=== PATIENT | female | born 1970 | race Caucasian/White ===

== ENCOUNTER 2018-12-07 07:15 | Day surgery (SDC) | payer OTHER ==
[2018-12-07 07:48] VITALS: BMI 43.3
[2018-12-07 08:21] VITALS: TEMP 97.3
--- NOTE | 2018-12-07 08:29 | OP ---
DATE OF OPERATION: 12/07/2018 SURGEON: Anali Schafer M.D. PREOPERATIVE DIAGNOSIS: Morbid obesity, a body mass index of 43.3. POSTOPERATIVE DIAGNOSIS: Normal gross anatomy prior to bariatric surgery. PROCEDURE PERFORMED: Upper endoscopy/EGD. SPECIMENS: None. ANESTHESIA: MAC. REASON FOR PROCEDURE: This is a 47-year-old female who has undergone the workup and evaluation for a vertical sleeve gastrectomy. To evaluate the gross anatomy prior to surgery, an upper endoscopy (EGD) was scheduled. The risks and benefits of the procedure were explained, these included bleeding, infection, injury to the mouth and oral mucosa, esophagus, GE junction, stomach, bowel perforation, stricture, VT, DVT, PE as some of the complications. She understood and signed informed consent DESCRIPTION OF PROCEDURE: The patient was placed in the left lateral decubitus position. A bite block was placed. A time-out was performed. MAC was given by anesthesia. The endoscope was placed into the patient's mouth and advanced through the esophagus to the GE junction, stomach, up to and beyond the level of the pylorus. Gross anatomy appeared to be normal. No gross ulcerations or gross torsions were noted. The stomach was suctioned and the endoscope fully removed. The patient tolerated the procedure well and was transferred to the recovery room in stable condition. ANALI SCHAFER M.D. [id number] MTDD
--- NOTE | 2018-12-07 08:31 | OP ---
Operative Note - Note: Operative Date: 12/07/18 Pre-Operative Diagnosis: Morbid obesity Operation: EGD Post-Operative Diagnosis: Other (Normal gross anatomy) Surgeon: Chris Schafer Anesthesia: MAC Specimens Removed: None Estimated Blood Loss (mls): 0 Operative Report Dictated: Yes
[2018-12-07 09:07] VITALS: BP 140/76; PULSE 63
== END 2018-12-07 09:06 | disposition home or self-care (01) ==
LOC: JASU-ENDO 07:15 → EDSTATUS 17:40
PROVIDERS: ATTEND Surgery
PROC: 0DJ08ZZ Inspection of Upper Intestinal Tract, Via Natural or Artificial Opening Endoscopic (ICD-10-PCS; principal; 2018-12-07 08:00)
DX: Z01.818 Encounter for other preprocedural examination (principal); E66.01 Morbid (severe) obesity due to excess calories; Z68.41 Body mass index [BMI] 40.0-44.9, adult
CPT/HCPCS: 84703

== ENCOUNTER 2019-02-28 06:01 | Inpatient (IN) | payer OTHER ==
[2019-02-22 14:10] VITALS: BMI 42.0
[2019-02-28] MEDS ORDERED: PROPOFOL 20 ML ONE (07:11)
[2019-02-28] MEDS ORDERED: MIDAZOLAM HCL 2 MG/2 ML SINGLE DOSE VIAL ONE (07:11)
[2019-02-28] MEDS ORDERED: ceFAZolin SODIUM 1 GM VIAL ONE ×2 (07:11)
[2019-02-28] MEDS ORDERED: ONDANSETRON 4 MG/2 ML VIAL ONE (07:11)
[2019-02-28] MEDS ORDERED: DEXAMETHASONE SOD PHOSPHATE 4 MG/1 ML VIAL ONE (07:12)
[2019-02-28] MEDS ORDERED: ROCURONIUM BROMIDE 50 MG/5 ML VIAL ONE ×2 (07:17→09:05)
[2019-02-28] MEDS ORDERED: NEOSTIGMINE METHYLSULFATE 0.5 MG/ML - 10 ML MDV ONE (07:17)
[2019-02-28] MEDS ORDERED: SUCCINYLCHOLINE CHLORIDE 200 MG/10 ML VIAL ONE (07:18)
[2019-02-28] MEDS ORDERED: BUPIVACAINE HCL/PF 2.5 MG/ML - 30 ML VIAL IJ ONE (07:28)
[2019-02-28] MEDS ORDERED: PROMETHAZINE HCL 25 MG/1 ML VIAL IVPUSH PRN (07:45)
--- NOTE | 2019-02-28 07:46 | HP ---
Admitting History and Physical - Admission Chief Complaint: Morbid obesity History Source: Patient Limitations to Obtaining History: No Limitations - Past Medical History ...LMP: 11/09/16 ...LMP Comment: 2016 ...: No - Past Surgical History Past Surgical History: Yes: Cholecystectomy, , Tonsillectomy - Smoking History Smoking history: Never smoked Have you smoked in the past 12 months: No - Alcohol/Substance Use Hx Alcohol Use: No Home Medications - Allergies Allergies/Adverse Reactions: Allergies Allergy/AdvReac Type Severity Reaction Status Date / Time No Known Allergies Allergy Verified 02/22/19 14:01 - Home Medications Home Medications: Ambulatory Orders Biotin 10,000 mcg PO DAILY 02/22/19 Doxycycline Hyclate 100 mg PO BID 02/22/19 Famotidine [Pepcid] 20 mg PO BID #60 tablet 02/28/19 Oxycodone HCl/Acetaminophen [Percocet 5-325 mg Tablet] 1 - 2 tab PO Q6H #28 tab MDD 4 02/28/19 Family Disease History - Family Disease History Family History: Unremarkable Review of Systems - Review of Systems Constitutional: denies: Chills, Fever HENT: reports: No Symptoms Neck: reports: No Symptoms Cardiovascular: reports: No Symptoms Respiratory: reports: No Symptoms Gastrointestinal: reports: No Symptoms. denies: Abdominal Pain Neurological: reports: No Symptoms Pain Intensity: 0 Physical Examination Vital Signs: Vital Signs Temperature 98.4 F 02/28/19 06:57 Pulse Rate 62 02/28/19 06:57 Respiratory Rate 18 02/28/19 06:57 Blood Pressure 128/82 02/28/19 06:57 O2 Sat by Pulse Oximetry (%) Constitutional: Yes: No Distress, Obese Neck: Yes: WNL Cardiovascular: Yes: WNL Respiratory: Yes: Regular Gastrointestinal: Yes: Soft, Abdomen, Obese. No: Tenderness Neurological: Yes: Alert, Oriented Problem List - Problems (1) Morbid obesity due to excess calories Code(s): E66.01 - MORBID (SEVERE) OBESITY DUE TO EXCESS CALORIES (2) BMI 40.0-44.9, adult Code(s): Z68.41 - BODY MASS INDEX (BMI) 40.0-44.9, ADULT Assessment/Plan Laparoscopic possible open vertical sleeve gastrectomy possible liver biopsy, possible upper endoscopy
[2019-02-28] MEDS ORDERED: ePHEDrine SULFATE 50 MG/1 ML AMPULE ONE (08:33)
[2019-02-28] MEDS ORDERED: BUPIVACAINE HCL/PF 0.25% (2.5MG/ML) 10 ML VIAL IJ ONE (09:18)
[2019-02-28] MEDS ORDERED: HYDROmorphone HCL CARPU-JECT 1 MG/1 ML DISP.SYRIN IVPB PRN (09:22)
--- NOTE | 2019-02-28 09:27 | OP ---
Operative Note - Note: Operative Date: 02/28/19 Pre-Operative Diagnosis: Morbid obesity. BMI 42.1 Operation: Diagnostic laparoscopy. Laparoscopic vertical sleeve gastrectomy. Laparoscopic wedge liver biopsy Post-Operative Diagnosis: Same as Pre-op (as well as hepatomegaly) Surgeon: Chris Schafer Sr Technical Sales Consultant: Zion Lozada Anesthesia: General Specimens Removed: Greater curvature of stomach. Liver biopsy Estimated Blood Loss (mls): 30 Drains & Tubes with Location: 36 Fr Bougie Operative Report Dictated: Yes
[2019-02-28] MEDS: ACETAMINOPHEN 1000 MG/100 ML VIAL (NON FORMULARY) IVPB SCH ×4 (09:40→22:05)
[2019-02-28] MEDS: METOCLOPRAMIDE HCL INJECTION 10 MG/2 ML VIAL IVPUSH SCH ×4 (09:46→21:23)
[2019-02-28] MEDS ORDERED: FAMOTIDINE 20 MG PREMIXED IVPB IVPB ONE (10:13)
[2019-02-28 10:37] LABS: ALBUMIN 3.8 g/dl (3.4-5.0); ALK PHOS 76 U/L (45-117); ANION GAP 10 MMOL/L (8-16); BILIRUBIN,TOTAL 0.9 mg/dl (0.2-1); BLOOD UREA NITROGEN 18 mg/dl (7-18); CALCIUM 8.4 mg/dl (8.5-10); CHLORIDE 102 mmol/L (98-107); CO2 26 mmol/L (21-32); CREATININE 0.7 mg/dl (0.55-1.3); GLUCOSE,RANDOM 158 mg/dl (74-106); POTASSIUM 4.5 mmol/L (3.5-5.1); SGOT/AST 49 U/L (15-37); SGPT/ALT 53 U/L (13-61); SODIUM 138 mmol/L (136-145); TOT PROT 6.8 g/dl (6.4-8.2)
[2019-02-28 10:38] LABS: HEMATOCRIT 41.3 % (32.4-45.2); HEMOGLOBIN 13.9 GM/dl (10.7-15.3); MCH 30.2 pg (25.7-33.7); MCHC 33.6 g/dl (32.0-36.0); MEAN CELL VOLUME 89.7 fl (80-96); PLATELET COUNT 281 K/MM3 (134-434); RDW 12.8 % (11.6-15.6); WHITE BLOOD COUNT 5.7 K/mm3 (4.0-10.8)
--- NOTE | 2019-02-28 11:01 | SPEC ---
DATE OF OPERATION: 02/28/2019 SURGEON: Anali Schafer MD CADMIUM LIQUOR MAKER: Zion Lozada MD PREOPERATIVE DIAGNOSES: 1. Morbid obesity. 2. Body mass index 42.1. POSTOPERATIVE DIAGNOSES: 1. Morbid obesity. 2. Body mass index 42.1. 3. Hepatomegaly. PROCEDURES: 1. Diagnostic laparoscopy. 2. Laparoscopic vertical sleeve gastrectomy. 3. Laparoscopic wedge liver biopsy. SPECIMENS: 1. Greater curvature of the stomach. 2. Liver biopsy. ESTIMATED BLOOD LOSS: 30 mL. DRAIN: None. ANESTHESIA: GET. BOUGIE SIZE: 36-[place]. REASON FOR PROCEDURE: This is a 48-year-old female who presented for weight loss options. After describing different options, she decided to proceed with a laparoscopic, possible open, vertical sleeve gastrectomy with possible liver biopsy, possible upper endoscopy. RISKS AND BENEFITS: After describing the different options for weight loss management, the patient decided to proceed with a laparoscopic, possible open vertical sleeve gastrectomy. The patient was seen by the respective subspecialties and cleared for surgery. The risks and benefits of the procedure were explained. These included bleeding, infection, hernia, IA, DVT, PE, injury to surrounding structures including the liver, colon, bowel, spleen, esophagus, vessel injury, nerve injury, weight regain, gastric leak, staple line leak, sleeve leak, obstruction, vitamin deficiency, hair loss and as some of the possible complications. The patient understood and signed informed consent. DESCRIPTION OF PROCEDURE: The patient was placed supine on the operating room table. The patient underwent general endotracheal intubation. The arms were brought out at 90 degrees and secured. A footboard was placed and the legs were secured laterally with padding. The abdomen was prepped and draped in the usual sterile fashion. A timeout was performed. An incision was made in the left upper quadrant and a Veress needle inserted. Pneumoperitoneum was established. Subsequently, the Veress needle was removed and a 5-mm trocar was placed under direct visualization with the laparoscope. The laparoscopic camera was then inserted and inspection of the abdominal cavity was performed. An incision was then made in the supraumbilical area and a 15-mm trocar was placed under direct visualization. A 5-mm trocar was then placed in the right upper quadrant and a 5-mm trocar was placed below the left subcostal margin. A stab wound was made in the subxiphoid area and a Soraya clamp inserted and removed to dilate the tract. A Jesusita liver retractor was inserted. The post was secured at the bedside by the nursing staff. The patient was placed in steep reverse Trendelenburg position and the Jesusita liver retractor was used to secure the liver towards the anterior abdominal wall. The pylorus was identified and 6 cm proximal to it, the lesser sac was entered using the LigaSure device. All lateral attachments to the greater curvature of the stomach, including the short gastric vessels, were ligated using the LigaSure device toward the gastrosplenic and gastrophrenic ligaments. Once this was done in its entirety, it was confirmed that all tubes within the nasal or oropharyngeal cavity, including a temperature probe, was removed by Anesthesia. The bougie was then inserted by Anesthesia. Transection of the stomach was then begun staying adjacent to the bougie but away from the angularis. Transection of the stomach was performed near the portion of the stomach where the lesser sac was entered. Two laparoscopic Endo-SARAI black shun were used at this location. Laparoscopic Endo SARAI purple staple loads were then used for the remainder of the transection until the greater curvature of the stomach was fully transected. This was done staying close to the bougie. Care was taken to stay away from the angle of His cephalad. The staple line was then inspected. Hemostasis was identified. A leak test was then performed. It was clamped distally to the staple line. Irrigation solution was placed in the left upper quadrant and air was insufflated by Anesthesia into the sleeve. No leaks were identified. No obstruction was identified. This was done through the entirety of the staple line. In addition, an upper endoscopy was performed. The endoscope was placed into the patients mouth and the entirety of the esophagus, GE junction, gastric pouch and staple line were inspected. No obstruction or leak was noted. The stomach was suctioned and the endoscope removed fully intact. At this point, the irrigation solution was suctioned and again, hemostasis was noted. A wedge liver biopsy was then performed. The left lobe of the liver was identified and a portion of the edge was grasped. Using electrocautery, a wedge of the liver was excised. This was removed and sent off the field as specimen. Hemostasis at the site of the wedge liver biopsy was attained using electrocautery. The 15-mm supraumbilical trocar was then removed and the greater curvature specimen removed from the site using a sponge stick quinonez. The specimen was inspected and a Veress needle inserted. The specimen insufflated adequately and no leak was identified. The staple line was noted to be intact. A Obinna-Latonia device was then used to close the fascia with a 0 Vicryl suture at the site. Again, hemostasis was noted. The Jesusita liver retractor was then removed under direct visualization. Pneumoperitoneum was desufflated and the fascial sutures were secured. Hemostasis was noted at all incision sites and Marcaine was injected at all incision sites. All incision sites were closed using 4-0 Biosyn. Sterile dressings were applied. The patient tolerated the procedure well and was transferred to the recovery room in stable condition. The patient was transferred to telemetry for further monitoring. ANALI SCHAFER M.D. [id number]
[2019-02-28] MEDS: SODIUM CHLORIDE 1,000 ML IV SCH (12:36)
[2019-02-28] MEDS: FAMOTIDINE 20 MG/50 ML IVPB 20 MG/50 ML MG IVPB SCH ×2 (12:37→21:23)
[2019-02-28] MEDS: ONDANSETRON 4 MG/2 ML VIAL IVPUSH SCH ×3 (12:56→21:22)
[2019-02-28] MEDS: ENOXAPARIN NA (PORCINE) 40 MG/0.4 ML DISP.SYRIN SQ SCH (21:28)
[2019-03-01] MEDS: ONDANSETRON 4 MG/2 ML VIAL IVPUSH SCH ×4 (00:27→12:48)
[2019-03-01] MEDS: ACETAMINOPHEN 1000 MG/100 ML VIAL (NON FORMULARY) IVPB SCH (03:12)
[2019-03-01] MEDS: METOCLOPRAMIDE HCL INJECTION 10 MG/2 ML VIAL IVPUSH SCH ×2 (03:13→09:23)
[2019-03-01 06:59] LABS: HEMATOCRIT 38.2 % (32.4-45.2); HEMOGLOBIN 12.8 GM/dl (10.7-15.3); MCH 30.1 pg (25.7-33.7); MCHC 33.5 g/dl (32.0-36.0); MEAN PLT VOLUME 7.6 fl (7.5-11.1); PLATELET COUNT 251 K/MM3 (134-434); RBC 4.24 M/mm3 (3.60-5.2); RDW 12.4 % (11.6-15.6); WHITE BLOOD COUNT 8.2 K/mm3 (4.0-10.8)
[2019-03-01 07:15] LABS: ALBUMIN 3.4 g/dl (3.4-5.0); ALK PHOS 73 U/L (45-117); ANION GAP 7 MMOL/L (8-16); BILIRUBIN,TOTAL 0.6 mg/dl (0.2-1); BLOOD UREA NITROGEN 8 mg/dl (7-18); CALCIUM 8.4 mg/dl (8.5-10); CHLORIDE 107 mmol/L (98-107); CO2 25 mmol/L (21-32); CREATININE 0.6 mg/dl (0.55-1.3); GLUCOSE,RANDOM 92 mg/dl (74-106); POTASSIUM 3.3 mmol/L (3.5-5.1); SGOT/AST 47 U/L (15-37); SGPT/ALT 62 U/L (13-61); SODIUM 139 mmol/L (136-145)
--- NOTE | 2019-03-01 09:03 | PN ---
Progress Note (short form) - Note Progress Note: ANESTHESIA POSTOP 48 YO female POD#1 s/p Lap gastric sleeve and GETA Patient doing well. Resting in bed without complaint. Pain adequately controlled. No n/v VSS, Afebrile Encouraged ambulation and IS. Continue current care
[2019-03-01] MEDS: SODIUM CHLORIDE 1,000 ML IV SCH (09:23)
[2019-03-01] MEDS: FAMOTIDINE 20 MG/50 ML IVPB 20 MG/50 ML MG IVPB SCH (09:24)
[2019-03-01] MEDS: ENOXAPARIN NA (PORCINE) 40 MG/0.4 ML DISP.SYRIN SQ SCH (09:25)
[2019-03-01] MEDS ORDERED: POTASSIUM CHLORIDE TABS 20 MEQ TABLET.ER (FP) PO ONE (12:30)
[2019-03-01] MEDS ORDERED: POTASSIUM CHLORIDE ORAL LIQUID 20 MEQ/15 ML PO ONE (13:00)
[2019-03-01 13:56] VITALS: BP 126/58; PULSE 79; TEMP 98.5
--- NOTE | 2019-03-01 14:15 | PN ---
Progress Note (short form) - Note Progress Note: POD 1 Pain controlled No nausea Vital Signs Period Temp Pulse Resp BP Sys/Lozada Pulse Ox Last 24 Hr 98.5 F-99.4 F 57-80 17-18 115-151/52-58 92-100 Abd soft CBC,CMP WBC 8.2 K/mm3 (4.0-10.8) 03/01/19 06:30 RBC 4.24 M/mm3 (3.60-5.2) 03/01/19 06:30 Hgb 12.8 GM/dl (10.7-15.3) 03/01/19 06:30 Hct 38.2 % (32.4-45.2) 03/01/19 06:30 MCV 90.0 fl (80-96) 03/01/19 06:30 MCH 30.1 pg (25.7-33.7) 03/01/19 06:30 MCHC 33.5 g/dl (32.0-36.0) 03/01/19 06:30 RDW 12.4 % (11.6-15.6) 03/01/19 06:30 Plt Count 251 K/MM3 (134-434) 03/01/19 06:30 MPV 7.6 fl (7.5-11.1) 03/01/19 06:30 Sodium 139 mmol/L (136-145) 03/01/19 06:30 Potassium 3.3 mmol/L (3.5-5.1) L 03/01/19 06:30 Chloride 107 mmol/L (98-107) 03/01/19 06:30 Carbon Dioxide 25 mmol/L (21-32) 03/01/19 06:30 Anion Gap 7 MMOL/L (8-16) L 03/01/19 06:30 BUN 8 mg/dl (7-18) 03/01/19 06:30 Creatinine 0.6 mg/dl (0.55-1.3) 03/01/19 06:30 Creat Clearance w eGFR 105.82 (>60) 03/01/19 06:30 Random Glucose 92 mg/dl (74-106) 03/01/19 06:30 Calcium 8.4 mg/dl (8.5-10) L 03/01/19 06:30 Total Bilirubin 0.6 mg/dl (0.2-1) 03/01/19 06:30 AST 47 U/L (15-37) H 03/01/19 06:30 ALT 62 U/L (13-61) H 03/01/19 06:30 Alkaline Phosphatase 73 U/L (45-117) 03/01/19 06:30 Total Protein 6.0 g/dl (6.4-8.2) L 03/01/19 06:30 Albumin 3.4 g/dl (3.4-5.0) 03/01/19 06:30 UGI: no leak/obstruction Clears Discharge home Problem List - Problems (1) Morbid obesity due to excess calories Code(s): E66.01 - MORBID (SEVERE) OBESITY DUE TO EXCESS CALORIES (2) BMI 40.0-44.9, adult Code(s): Z68.41 - BODY MASS INDEX (BMI) 40.0-44.9, ADULT
[2019-03-01] MEDS ORDERED: SODIUM CHLORIDE 1,000 ML IV SCH (14:30)
--- NOTE | 2019-03-04 13:04 | PATH ---
Surgical Pathology Report Patient Name: SAMUEL CHAVEZ Med. Rec. #: [id number] /Age/Gender: 1970 (Age: 48) / F Account: [id number] Location: [facility] Taken: 02/28/2019 Received: 02/28/2019 Reported: 03/04/2019 Physicians: Chris Schafer M.D. Specimen(s) Received A: GREATER CURVATURE STOMACH B: LIVER BIOPSY Clinical History Morbid obesity Final Diagnosis A. GREATER CURVATURE STOMACH, LAPAROSCOPIC GASTRIC SLEEVE EXCISION: PORTION OF STOMACH SHOWING MILD CHRONIC MUCOSAL INFLAMMATION. IMMUNOSTAIN IS NEGATIVE FOR H. PYLORI ORGANISMS. B. LIVER, WEDGE BIOPSY: PORTION OF LIVER SHOWING MINIMAL STEATOSIS (~5%). TRICHROME STAIN SHOWS NO APPRECIABLE INCREASE IN FIBROSIS. IRON STAIN SHOWS NO APPRECIABLE INCREASE IN IRON. Electronically Signed Ellie Barr M.D. Gross Description A. Received in formalin, labeled "greater curvature of stomach," is a 103 gram, 18.0 x 3.3 x 2.0 cm. portion of stomach with a stapled margin of resection. The serosa is bradley-ramsay with minimal attached fat. The mucosa is bradley-pink with normal folds. No mucosal masses are identified. [employer] sections are submitted in one cassette. B. Received in formalin labeled "liver biopsy," is a 2.0 x 1.9 x 0.7 cm bradley portion of soft tissue, consistent with a portion of liver. [employer] Licensee sections are submitted in one cassette. /03/01/2019 saudi03/01/2019
== END 2019-03-01 14:30 | disposition home or self-care (01) | DRG 621 ==
LOC: FM/S 06:01
PROVIDERS: ADMIT Surgery; ATTEND Surgery
PROC: 0DJ08ZZ Inspection of Upper Intestinal Tract, Via Natural or Artificial Opening Endoscopic (ICD-10-PCS; 2019-02-28)
PROC: 0DB64Z3 Excision of Stomach, Percutaneous Endoscopic Approach, Vertical (ICD-10-PCS; principal; 2019-02-28 08:24)
PROC: 0FB24ZX Excision of Left Lobe Liver, Percutaneous Endoscopic Approach, Diagnostic (ICD-10-PCS; 2019-02-28 08:24)
DX: E66.01 Morbid (severe) obesity due to excess calories (principal); Z68.41 Body mass index [BMI] 40.0-44.9, adult; R16.0 Hepatomegaly, not elsewhere classified
CPT/HCPCS: 36415; 74241-TC-FY; 80053; 84703; 85027; 88305-TC; 94760; J0131; J7030